=== PATIENT | female | born 1990 | race Caucasian/White ===

== ENCOUNTER 2016-09-30 12:49 | Emergency (ER) | payer MEDICAID ==
[~2016-09-30] VITALS: Wt 57.0 kg
[2016-09-30 13:53] LABS: BASOPHILS % 0.1 % (0.0-2.0); EOSINOPHILS % 0.5 % (0.0-7.0); HEMATOCRIT 32.6 % (37.0-47.0); HEMOGLOBIN 11.5 g/dl (12.0-16.0); LYMPHOCYTES % 27.1 % (15.0-51.0); MEAN CORPUSCULAR HEMOGLOBIN 29.9 pg (29.0-33.0); MEAN CORPUSCULAR HGB CONC 35.3 g/dl (32.0-37.0); MEAN CORPUSCULAR VOLUME 84.9 fl (82.0-101.0); MEAN PLATELET VOLUME 9.6 fl (7.4-10.4); MONOCYTE # 0.6 10^3/ul (0.3-0.9); MONOCYTES % 7.4 % (0.0-11.0); NEUTROPHIL # 4.9 10^3/ul (1.6-7.5); NEUTROPHILS % 64.6 % (39.0-77.0); PLATELET COUNT 254 10^3/UL (140-415); RED BLOOD COUNT 3.84 10^6/ul (4.20-5.40); RED CELL DISTRIBUTION WIDTH 12.3 % (11.5-14.5); WHITE BLOOD COUNT 7.5 10^3/ul (4.8-10.8)
[2016-09-30 13:57] LABS: ADD UMIC YES; UR ASCORBIC ACID 20 mg/dL (NEGATIVE); UR BILIRUBIN (Dip) NEGATIVE (NEGATIVE); UR BLOOD (Dip) 2+ mg/dL (NEGATIVE); UR CLARITY CLEAR (CLEAR); UR COLOR YELLOW (YELLOW); UR GLUCOSE (Dip) NEGATIVE (NEGATIVE); UR KETONES (Dip) 1+ mg/dL (NEGATIVE); UR LEUKOCYTE ESTERASE (Dip) 3+ Leu/ul (NEGATIVE); UR NITRITE (Dip) NEGATIVE (NEGATIVE); UR RBC 4 /HPF (0-5); UR SPECIFIC GRAVITY (Dip) 1.024 (1.003-1.030); UR SQUAMOUS EPITHELIAL CELL FEW /HPF (FEW); UR TOTAL PROTEIN (Dip) NEGATIVE (NEGATIVE); UR UROBILINOGEN (Dip) NEGATIVE (NEGATIVE)
--- NOTE | 2016-09-30 14:21 | RADRPT ---
PROCEDURE: US OB. CLINICAL INDICATION: Vaginal bleeding TECHNIQUE: Transabdominal views of the pelvis are available for review. COMPARISON: No prior studies are available for comparison. FINDINGS: There is a single intrauterine gestation with the crown-rump length measuring 2.0 cm, corresponding to a gestational age of 8 weeks and 4 days. The heart rate is noted at 163 bpm. The ovaries are normal in size and echogenicity. Normal Doppler flow is identified in both ovaries. The right ovary measures 4.2 x 2.6 x 2.4 cm. There are small simple cysts in the right ovary, the la rgest measuring 2.1 cm. The left ovary measures 3.3 x 1.9 x 2.9 cm. There is no free fluid. RPTAT: AA IMPRESSION: Single live intrauterine with an estimated gestational age of 8 weeks and 4 days, based on ultrasound measurements. SEA based on ultrasound measurements is 05/08/2017. .Wolf Perez MD, MD Date Time Electronically viewed and signed by .Wolf Perez MD, on 09/30/2016 14:21 .S/
[2016-09-30] MEDS ORDERED: CEPH-443 PO (15:16)
--- NOTE | 2016-09-30 16:38 | ERD ---
ER Documentation Chief Complaint Date/Time DATE: 09/30/16 TIME: 16:36 Chief Complaint VAG BLEEDING SINCE THIS MORNING 8 WKS PREG. NO AP . HPI This is a 25-year-old female presents to the ER with vaginal bleeding that started this morning. Patient is currently 8 weeks A0. Patient has not had any fevers or chills. She denies any pelvic pain, pelvic cramping. Patient denies any vaginal discharge. Patient denies any urinary frequency or dysuria. Patient states that she is only spotting and only has used 1 pad. ROS 12 point review of systems was done, all negative except per HPI. Medications Home Meds Active Scripts Cephalexin* (Keflex*) 500 Mg Capsule, 500 MG PO BID for 7 Days, CAP Prov:STACIE SIMON 09/30/16 Allergies Allergies: Coded Allergies: No Known Allergy (Unverified , 09/30/16) PMhx/Soc Medical and Surgical Hx: pt denies Medical Hx, pt denies Surgical Hx Hx Alcohol Use: No Hx Substance Use: No Hx Tobacco Use: No Smoking Status: Never smoker Physical Exam Vitals Vital Signs Date Time Temp Pulse Resp B/P Pulse Ox O2 Delivery O2 Flow Rate FiO2 09/30/16 12:52 99.8 69 20 122/58 99 Physical Exam GENERAL: The patient is well developed and appropriate for usual state of health , in no apparent distress. HEENT: Atraumatic. CHEST: Clear to auscultation bilaterally. There are no rales, wheezes or rhonchi. HEART: Regular rate and rhythm. No murmurs, clicks, rubs or gallops. ABDOMEN: Soft, nontender and nondistended. Good bowel sounds. No rebound or guarding. No gross peritonitis. No gross organomegaly or masses. No Sky sign or McBurney point tenderness. BACK: No midline or flank tenderness. NEURO: Alert and oriented. Result Diagram: 09/30/16 1330 Results 24 hrs Laboratory Tests Test 09/30/16 13:30 White Blood Count 7.510^3/ul Red Blood Count 3.8410^6/ul Hemoglobin 11.5g/dl Hematocrit 32.6% Mean Corpuscular Volume 84.9fl Mean Corpuscular Hemoglobin 29.9pg Mean Corpuscular Hemoglobin Concent 35.3g/dl Red Cell Distribution Width 12.3% Platelet Count 52230^3/UL Mean Platelet Volume 9.6fl Neutrophils % 64.6% Lymphocytes % 27.1% Monocytes % 7.4% Eosinophils % 0.5% Basophils % 0.1% Nucleated Red Blood Cells % 0.0/100WBC Neutrophils # 4.910^3/ul Lymphocytes # 2.010^3/ul Monocytes # 0.610^3/ul Eosinophils # 0.010^3/ul Basophils # 0.010^3/ul Nucleated Red Blood Cells # 0.010^3/ul Urine Color YELLOW Urine Clarity CLEAR Urine pH 5.0 Urine Specific [place] 1.024 Urine Ketones 1+mg/dL Urine Nitrite NEGATIVEmg/dL Urine Bilirubin NEGATIVEmg/dL Urine Urobilinogen NEGATIVEmg/dL Urine Leukocyte Esterase 3+[place]/ul Urine Microscopic RBC 4/HPF Urine Microscopic WBC 2/HPF Urine Squamous Epithelial Cells FEW/HPF Urine Hemoglobin 2+mg/dL Urine Glucose NEGATIVEmg/dL Urine Total Protein NEGATIVEmg/dl Beta HCG, Quantitative 018189.0mIU/ml [place] [id number] Radiology Main Line: [phone] DIAGNOSTIC IMAGING REPORT Patient: OSCAR BERMUDEZ : 1990 Age: 25 Sex: F MR #: [id number] DOS: 09/30/16 1320 Ordering MD: STACIE SIMON PA-C Location: [facility] Room/Bed: PROCEDURE: US OB. CLINICAL INDICATION: Vaginal bleeding TECHNIQUE: Transabdominal views of the pelvis are available for review. COMPARISON: No prior studies are available for comparison. FINDINGS: There is a single intrauterine gestation with the crown-rump length measuring 2.0 cm, corresponding to a gestational age of 8 weeks and 4 days. The heart rate is noted at 163 bpm. The ovaries are normal in size and echogenicity. Normal Doppler flow is identified in both ovaries. The right ovary measures 4.2 x 2.6 x 2.4 cm. There are small simple cysts in the right ovary, the largest measuring 2.1 cm. The left ovary measures 3.3 x 1.9 x 2.9 cm. There is no free fluid. RPTAT: AA IMPRESSION: Single live intrauterine with an estimated gestational age of 8 weeks and 4 days, based on ultrasound measurements. SEA based on ultrasound measurements is 05/08/2017. .Wolf Perez MD, MD Date Time Electronically viewed and signed by .Wolf Perez MD, on 09/30/2016 14: 21 .S/ CC: STACIE SIMON Procedures/MDM Differential diagnosis: Threatened , missed , incomplete , ectopic , molar , UTI, pyelonephritis. At this time patient's ultrasound appeared normal and her blood work is normal. Patient did have a urinary tract infection she will be treated with Keflex. Patient was told to follow-up with her MANAGER SECURITY within 48 hours. I am not able to rule out threatened at this time, however everything does appear to be within normal limits. Patient is to return to ER sooner if symptoms worsen. My medical decision making sure with the patient she understands and agrees with plan. Departure Diagnosis: Primary Impression: UTI (urinary tract infection) Additional Impression: Vaginal bleeding in patient at less than 20 weeks ges... Condition: Stable Patient Instructions: Understanding Urinary Tract Infections (UTIs), Bleeding During Early Additional Instructions: Llame al doctor MAANA y yesy glenis GIANNI PARA DENTRO DE 1-2 CERDA.Dgale a la secretaria que nosotros le instruimos hacer esta gianni.Avise o llame si bhakta condicin se empeora antes de la gianni. Regresa aqui si peor o no mejor. PUEDES IR CON TU GINECOLOGA EN 2 CERDA PARA SEGUIMIENTO, SI TUS SIMPTOMAS EMPEORA , REGRESA A LA DAVID DE EMERGENCIA MAS PRONTO STACIE SIMON Sep 30, 2016 16:38
== END 2016-09-30 15:26 | disposition home or self-care (01) ==
LOC: FTE 12:49 → EDBD 12:49 → FTE 15:26
DX: O23.41 Unspecified infection of urinary tract in pregnancy, first trimester (principal); Z3A.08 8 weeks gestation of pregnancy
CPT/HCPCS: 36415; 76801; 81001; 84702; 85025; 86900; 86901; Z7502

== ENCOUNTER 2017-02-09 12:11 | Outpatient (CLI) | payer MEDICAID ==
[~2017-02-09] VITALS: Ht 154.9 cm; Wt 60.8 kg
[~2017-02-09 12:11] MED LIST: CEPH-443 PO
[2017-02-09] MEDS ORDERED: PNV11TAB PO (12:40)
[2017-02-09 12:41] VITALS: BP 103/61; PULSE 83; RESP 18; Ht 154.9 cm; Wt 60.8 kg
--- NOTE | 2017-02-09 15:28 | RADRPT ---
PROCEDURE: US OB biophysical profile. CLINICAL INDICATION: Decreased movement TECHNIQUE: Multiple sonographic images of the pelvis were obtained. The images were reviewed on a PACS workstation. COMPARISON: None FINDINGS: There is a single live intrauterine , in cephalic presentation. A normal heart rate i s identified measuring 139 beats per minute. The amniotic fluid index is within normal limits measur ing 17.7 cm. The placenta is grade 01-02, located posterior fundally Biophysical profile: movement 2/2 tone 2/2. breathing 2/2 GABY 2/2 Total 09/27 IMPRESSION: 1. Biophysical profile score of 09/27. 2. Single live intrauterine in cephalic presentation with normal heart rate of 139 b pm. 3. Normal amniotic fluid index of 17.7 cm. RPTAT: AAPP Physician Wilbur Date Time Electronically viewed and signed by Physician Wilbur on 02/09/2017 15:28 MARISA/
--- NOTE | 2017-02-09 16:06 | TRIAGE ---
OB Triage Datetime Report Generated by CPN: 02/09/2017 16:06 Datetime: 02/09/2017 13:30 Stage of : OB Triage Maternal Assessment Level of Consciousness: Fully Conscious Labor Evaluation Frequency: 2UC/HR Monitor Mode: External Duration (sec)2399: 80-120 Quality: Mild Resting Tone [place]: Relaxed Heart Rate FHR Baseline Rate: 135 Monitor Mode: External US Variability: Moderate 6-25 bpm Accelerations: 15X15 Decelerations: None Category: Category I Pain Assessment Pain Scale: 0 Pain Goal: 3 Vaginal Exam Membrane Status: Intact Vaginal Bleeding: None Datetime: 02/09/2017 12:51 Assessment Type: Admission Assessment Maternal Assessment Level of Consciousness: Fully Conscious DTR's/Clonus: DTRs 2+; No Clonus Headache: Denies Blurred Vision: No Respiratory Effort: Unlabored; Regular Rhythm; Equal Expansion Breath Sounds, Left: Clear and Equal Breath Sounds, Right: Clear and Equal Nausea/Vomiting: Denies RUQ Epigastric Pain: Denies Lower Extremities Edema: None Degree: None Upper Extremities Edema: None Degree: None Facial Edema: None Fall Risk Assessment History of Falling: (0) No Secondary Diagnosis: (0) No Ambulatory Aid: (0) Bedrest/Nurse Assist IV Therapy: (0) No Gait: (0) Normal/Bedrest/Immobile Mental Status: (0) Oriented to Own Ability Fall Score: 0 Fall Risk Score Definition: No Risk: No action required Labor Evaluation Frequency: 1/20MIN Monitor Mode: External Duration (sec)2399: 80 Quality: Mild Resting Tone [place]: Relaxed Heart Rate FHR Baseline Rate: 120 Monitor Mode: External US Variability: Moderate 6-25 bpm Accelerations: 15X15 Decelerations: None Category: Category I Datetime: 02/09/2017 12:50 EGA: 27.2 Datetime: 02/09/2017 12:49 Time of Arrival: 02/09/2017 12:05 Arrived By: Wheelchair Arrived From: Emergency Dept Chief Complaint: PT CAME IN COMPLAINING OF DFM SINCE YESTERDAY Movement: Decreased Contractions: Denies/Absent Rupture of Membranes: Denies Vaginal Bleeding: None Vaginal Discharge: Denies Recent Sexual Intercouse: Denies Abdominal Trauma: Not Applicable Patient Complaints: Other Time Provider Notified: 02/09/2017 13:30 Provider Notified: JARRELL Initial Plan: YANN MCLAIN
--- NOTE | 2017-02-09 16:13 | CONS ---
Date/Time of Note Date/Time of Note DATE: 02/09/17 TIME: 16:08 Consultation Date/Type/Reason Admit Date/Time February 09, 2017 OB triage consult This patient is 26 years old 1 para 0 with estimated date of confinement of 05/09/2017 which makes her 27 weeks and 2 days . The reason for coming to OB triage is the fact that she felt the baby's movement dropped since last night. Her general workup so for were normal: Her blood type a Rh+, hepatitis B surface antigen ,HIV ,Chlamydia, gonorrhea were all negative ,RPR was nonreactive and rubella was immune. On examination; her general vital signs appears to be normal ,with blood pressure 103/61, pulse rate 83, respiration 18, and temperature 98.6. Abdomen is soft heart tone is normal, tracing is reactive , with some variability ,no decelerations she does not have any contraction at this time, no CVA tenderness. Constitutional: No chills, No diaphoresis, No disoriented, No febrile, No improved, No no complaints, No other, No poor po, No requiring IVF, No requiring O2 Eyes: No discharge, No no complaints, No other, No pain, No redness, No visual change ENT: No bleeding, No congestion, No discharge, No dysphagia, No no complaints, No other, No pain, No sore throat Respiratory: No cough, No no complaints, No other, No pain, No pleuritic pain, No shortness of breath, No sputum, No wheezing Cardiovascular: No chest pain, No edema, No lightheadedness, No no complaints, No orthopenea, No other, No palpitations, No paroxysmal nocturnal dyspnea Gastrointestinal: No blood, No constipation, No decreased appetite, No diarrhea , No flatus, No nausea, No no complaints, No other, No pain, No passing stool, No vomiting Genitourinary: other (Pelvic examination was not performed due to the fact that she did not have any contractions), No bleeding, No discharge, No dysuria, No flank pain, No hematuria, No no complaints Musculoskeletal: No back pain, No bone/joint pain, No neck pain, No no complaints, No other, No restricted range of motion, No swelling Skin: No bruising, No erythema, No laceration, No no complaints, No other, No pruritis, No rash, No skin lesions Neurologic: other (Knee-jerk reflex was), No confusion, No dizziness, No focal-weakness, No headache, No no complaints , No seizure, No syncope Additional Comments On ultrasound study. the report is a single live intrauterine . cephalic presentation. with normal heart rate of 139 bpm. amniotic fluid index is 17.7 cm placenta was grade 1-2 located posteriorly . her biophysical profile was 8/8 .Disposition: With these normal finding, patient was reassured and was recommended to do the kick count and to follow her care with her space engineer . Social History Smoking Status: Never smoker Exam/Review of Systems Vital Signs Vitals Vital Signs Date Time Temp Pulse Resp B/P Pulse Ox O2 Delivery O2 Flow Rate FiO2 02/09/17 12:41 98.6 83 18 103/61 Room Air MARIE JIMENEZ MD Feb 09, 2017 16:13
== END 2017-02-09 16:10 | disposition home or self-care (01) ==
LOC: L-D 12:11 → MERGE 12:11 → OBT 12:11
PROVIDERS: ATTEND Obstetrics & Gynecology
DX: O36.8120 Decreased fetal movements, second trimester, not applicable or unspecified (principal); Z3A.27 27 weeks gestation of pregnancy
CPT/HCPCS: 76818; Z7500; G0463

== ENCOUNTER 2017-05-03 17:08 | Outpatient (CLI) | END 2017-05-03 18:50 | disposition home or self-care (01) ==

== ENCOUNTER 2017-05-05 13:07 | Inpatient (IN) | END 2017-05-09 18:49 | disposition home or self-care (01) | DRG 775 ==